=== PATIENT | male | born 1940 | race Caucasian/White ===

== ENCOUNTER → 2020-04-26 12:27 | Outpatient (CLI) | payer MEDICARE, SELFPAY ==
--- NOTE | 2020-04-26 12:33 | DI.CT.S_ITS ---
PROCEDURE: CT ABDOMEN PELVIS WO CON INDICATIONS: Gross hematuria TECHNIQUE: Noncontrast 5 mm thick sections acquired from the diaphragms to the symphysis. 5 mm thick coronal and sagittal reformats were then performed. For radiation dose reduction, the following was used: automated exposure control, adjustment of mA and/or kV according to patient size. COMPARISON: [facility], CT, CHEST/ABD/PEL WITH CONTRAST, 01/11/2016, 14:43. [facility], CT, CHEST/ABD/PEL WITHOUT CONTRAST, 02/04/2017, 8:03. FINDINGS: Image quality: Excellent. Lung bases: Basilar scars and atelectasis. Heart size is normal. Urinary system: Both kidneys are mildly decreased in size with cortical thinning. There is bilateral perinephric stranding. No kidney stones or hydronephrosis. A 4.8 cm simple appearing cyst is seen in the superior pole of the right kidney. Both ureters appear non-dilated throughout their expected courses. Bladder wall is mildly thickened and irregular; no calcified bladder stones. There is a large mass at bladder base presumably from protrusion of enlarged prostate. There is a 2 cm area of low-density within the prostate. The prostate is markedly enlarged. Other solid organs: Liver is normal in size. Gallbladder contains a large calcified gallstone and likely other smaller gallstones. Pancreas is normal in contours. Mild stranding around the pancreas. Spleen is normal in size. No adrenal nodules. Peritoneum and bowel: Unenhanced bowel loops demonstrate normal wall thickness and caliber. No free fluid or air. Nodes and vessels: No retroperitoneal or mesenteric adenopathy by size criteria. Aorta and inferior vena cava are normal in caliber. Mild atherosclerosis. Abdominal wall: No ventral hernias. Pelvis: No free pelvic fluid. No inguinal adenopathy. Fat containing inguinal hernias bilaterally, left larger than right. Bones: No suspicious bony lesions. No vertebral body compression fractures. Severe degenerative changes in lumbar spine. IMPRESSION: 1. Bladder wall is mildly thickened and irregular, probably sequelae of chronic bladder outlet ations. There is a large mass at bladder base presumably from protrusion of enlarged prostate. Superimposed uroepithelial neoplasm cannot be excluded. Recommend cystoscopy for further evaluation. 2. Markedly enlarged prostate. There is a 2 cm low density area in the left side approximately. Differential diagnoses include benign prostatic hypertrophy versus prostate cancer. 3. No renal stone or hydronephrosis. 4. Bilateral perinephric stranding. Kidneys are mildly atrophic. 5. The large simple appearing cyst in the superior pole of the right kidney measuring 4.8 cm. 6. Cholelithiasis. 7. Mild stranding around the pancreas. Recommend clinical correlation for mild pancreatitis. Dictated by: Madelyn Benjamin M.D. on 04/26/2020 at 17:20 Approved by: Madelyn Benjamin M.D. on 04/26/2020 at 17:52
== END ==
PROVIDERS: PCP Family Medicine; Referring Provider Physician Assistant; Visit Provider Physician Assistant
DX: R31.0 Gross hematuria (principal); N32.9 Bladder disorder, unspecified; N28.1 Cyst of kidney, acquired; N40.0 Benign prostatic hyperplasia without lower urinary tract symptoms; K80.20 Calculus of gallbladder without cholecystitis without obstruction; K86.9 Disease of pancreas, unspecified; K40.20 Bilateral inguinal hernia, without obstruction or gangrene, not specified as recurrent; M47.816 Spondylosis without myelopathy or radiculopathy, lumbar region
CPT/HCPCS: 74176

== ENCOUNTER → 2020-06-21 12:13 | Outpatient (CLI) | payer MEDICARE, SELFPAY ==
--- NOTE | 2020-06-21 | DI.US.S_ITS ---
PROCEDURE: US RENAL COMPLETE INDICATIONS: KIDNEY CYST TECHNIQUE: Real-time scanning was performed of the kidneys and bladder, with image documentation. COMPARISON: [facility], CT, CT ABDOMEN PELVIS WO CON, 04/26/2020, 12:49. [facility], US, RENAL COMPLETE, 05/24/2017, 8:36. FINDINGS: Kidneys: Kidneys are normal in size. Right kidney measures 11.2 cm long; left kidney measures 13.1 cm long. Right renal cortical thickness is 1.8 cm; left renal cortical thickness is 1.3 cm. Renal cortical echotexture is normal. No hydronephrosis or nephrolithiasis. No suspicious solid mass lesions. There is a partially exophytic right renal cyst measuring 5.0 x 4.2 x 5.1 cm, previously 4.5 x 4.4 x 4.6 cm. It is noted in the mid , medial aspect of the right kidney. There is apparent internal debris and likely mild internal septations. This has not significantly changed. No suspicious solid mass lesions or abnormal vascularity within this cyst. On recent CT, this appeared relatively simple in appearance. Bladder: Pre-void bladder volume is 200 mL. Post-void residual is 31 mL. Pre-void images demonstrate no vascular intraluminal masses or stones. However, there are areas of apparent fluid pockets in the bladder wall which may represent small bladder diverticula with the largest measuring approximately 1.8 cm in maximal dimension. No vascular solid mass lesions. On pre-void images, bilateral ureteral jets are noted with color Doppler interrogation. (Of note, ureteral jets may not be detectable in up to 25% of cases due to insufficient differences in specific gravity between ureteral and bladder urine). Miscellaneous: No free pelvic fluid. Enlarged prostate is noted. IMPRESSION: 1. No evidence for obstructive uropathy. 2. Interval increase in size of mildly complicated right renal cyst measuring 5.0 x 4.2 x 5.1 cm, previously 4.5 x 4.4 x 4.6 cm on 2017 comparison ultrasound. Recommend continued clinical and imaging surveillance. 3. Irregular bladder wall with areas of apparent bladder wall diverticula. Findings are compatible with findings seen on comparison CT dated April 26, 2020 where sequela of chronic bladder outlet obstruction was suggested. No definite urinary bladder wall mass/uroepithelial neoplasm. Consider further evaluation with direct visualization. 4. Enlarged prostate. Dictated by: Joshua Cedeño M.D. on 06/21/2020 at 17:54 Approved by: Joshua Cedeño M.D. on 06/21/2020 at 18:24
== END ==
PROVIDERS: PCP Family Medicine; Referring Provider Urology; Visit Provider Urology
DX: N28.1 Cyst of kidney, acquired (principal); N40.0 Benign prostatic hyperplasia without lower urinary tract symptoms
CPT/HCPCS: 76770